=== PATIENT | female | born 1975 | race African-American/Black ===

== ENCOUNTER 2016-08-25 02:59 | Emergency (ER) | payer MEDICAID ==
[~2016-08-25] VITALS: Ht 154.9 cm; Wt 67.3 kg
[~2016-08-25 02:59] MED LIST: CIPR500T87 PO; GABA300C10 PO; LACT1CAP24 PO; PRED5TAB25 PO; [UNRECOGNIZED DRUG - OTHER] PO
[2016-08-25 04:05] VITALS: BP 108/76
== END 2016-08-25 04:37 | disposition home or self-care (01) ==
LOC: ED 03:39
DX: J01.00 Acute maxillary sinusitis, unspecified (principal)
CPT/HCPCS: 99283